=== PATIENT | female | born 1970 | race Caucasian/White ===

== ENCOUNTER → 2017-09-04 | Outpatient (CLI) | payer BC | END | disposition home or self-care (01) | LOC: RAH 13:01 | PROVIDERS: ATTEND Family Medicine | DX: N63.10 Unspecified lump in the right breast, unspecified quadrant (principal); N63.20 Unspecified lump in the left breast, unspecified quadrant; R92.8 Other abnormal and inconclusive findings on diagnostic imaging of breast | CPT/HCPCS: 76641; 77066 ==

== ENCOUNTER → 2018-10-14 | Outpatient (CLI) | payer BC | END | disposition home or self-care (01) | LOC: RAH 15:51 | PROVIDERS: ATTEND Family Medicine | DX: Z12.31 Encounter for screening mammogram for malignant neoplasm of breast (principal) | CPT/HCPCS: 77067 ==

== ENCOUNTER → 2020-11-29 | Outpatient (CLI) | payer BC | END | disposition home or self-care (01) | LOC: RAH 09:32 | PROVIDERS: ATTEND Family Medicine | DX: Z12.31 Encounter for screening mammogram for malignant neoplasm of breast (principal) | CPT/HCPCS: 77067 ==

== ENCOUNTER → 2021-11-30 | Outpatient (CLI) | payer BC | END | disposition home or self-care (01) | LOC: RAH 15:18 | PROVIDERS: ATTEND Family Medicine | DX: Z12.31 Encounter for screening mammogram for malignant neoplasm of breast (principal) | CPT/HCPCS: 77067 ==

== ENCOUNTER → 2023-01-10 | Outpatient (CLI) | payer BC | END | disposition home or self-care (01) | LOC: RAH 09:25 | PROVIDERS: ATTEND Family Medicine | DX: Z12.31 Encounter for screening mammogram for malignant neoplasm of breast (principal) | CPT/HCPCS: 77067 ==

== ENCOUNTER 2023-08-22 17:38 | Emergency (ER) | payer BC ==
[~2023-08-22] VITALS: Ht 170.2 cm; Wt 82.1 kg
[2023-08-22 18:36] LABS: BASOPHILS # (AUTO) 0.02 K/uL (0.00-0.20); BASOPHILS % (AUTO) 0.2 % (0.0-5.0); EOSINOPHILS # (AUTO) 0.04 K/uL (0.00-0.70); EOSINOPHILS % (AUTO) 0.5 % (0.0-8.0); HEMATOCRIT 42.8 % (36-48); IMMATURE GRANULOCYTE ABSOLUTE 0.02 K/uL (0-1); LYMPHOCYTES # (AUTO) 0.6 K/uL (1.0-4.8); LYMPHOCYTES % (AUTO) 6.8 % (21.0-51.0); MEAN CORPUSCULAR HEMOGLOBIN 33.3 pg (27.0-33.0); MEAN CORPUSCULAR HGB CONC 34.3 g/dL (32.0-36.0); MEAN CORPUSCULAR VOLUME 97.1 fL (79-99); MONOCYTES # (AUTO) 0.5 K/uL (0.1-1.0); MONOCYTES % (AUTO) 5.6 % (3.0-13.0); NEUTROPHILS # (AUTO) 7.5 K/uL (1.8-7.7); NEUTROPHILS % (AUTO) 86.7 % (40.0-77.0); PLATELET COUNT (AUTO) 139 K/uL (130-400); RED BLOOD CELL COUNT(AUTO) 4.41 MIL/uL (4.00-5.50); RED CELL DISTRIBUTION WIDTH 12.7 % (11.0-15.5); WHITE BLOOD COUNT (AUTO) 8.7 K/uL (4.8-10.8)
[2023-08-22] MEDS ORDERED: IOHEXOL-350 75 ML VIAL IV ONE (18:39)
[2023-08-22 18:43] LABS: CREATININE 0.8 mg/dL (0.5-1.0); POTASSIUM 3.4 mmol/L (3.5-5.1)
[2023-08-22] MEDS: 0.9%NACL 1000ML 1,000 ML IV ONE (18:47)
[2023-08-22] MEDS: ZOSYN 3.375GM +NS 50ML IVPB SCH (18:47)
[2023-08-22] MEDS: ONDANSETRON 4MG INJ IVP ONE (18:47)
[2023-08-22 18:48] VITALS: TEMP 100.6
[2023-08-22 18:48] LABS: ALBUMIN 3.3 g/dL (3.5-5.0); BILIRUBIN,TOTAL 0.8 mg/dL (0.2-1.0); TOTAL PROTEIN, SERUM 7.2 g/dL (6.0-8.3)
[2023-08-22] MEDS: MORPHINE 2 MG SYG IVP ONE (18:48)
[2023-08-22] MEDS: ACETAMINOPHEN 500 MG TABLET PO ONE (18:48)
[2023-08-22 19:13] LABS: WBC MORPHOLOGY CONSISTENT W/DIFF
[2023-08-22] MEDS ORDERED: CEPH500T PO (21:11)
[2023-08-22 21:19] VITALS: BP 117/70; PULSE 108; RESP 18; O2SAT 98
== END 2023-08-22 22:55 | disposition home or self-care (01) ==
LOC: EDH 17:38
DX: K61.1 Rectal abscess (principal); I10 Essential (primary) hypertension; Z79.899 Other long term (current) drug therapy
CPT/HCPCS: 99284; 74177; 96365; 96375; 96366; 80053; 85025; 87040 ×2; 83605; 36415; J2270; J7030; J2405; J2543; Q9967

== ENCOUNTER 2023-08-23 08:33 | Observation (INO) | payer BC ==
[~2023-08-23] VITALS: Ht 170.2 cm; Wt 82.1 kg
[~2023-08-23 08:33] MED LIST: CEPH500T PO
[2023-08-23] MEDS: LACTATED RINGERS 1000ML 1,000 ML IV ONE (08:59)
[2023-08-23] MEDS: LEVOFLOXACIN 500 MG/D5W 100 ML 100 ML IV ONE (08:59)
[2023-08-23 09:11] LABS: BASOPHILS # (AUTO) 0.02 K/uL (0.00-0.20); BASOPHILS % (AUTO) 0.2 % (0.0-5.0); EOSINOPHILS # (AUTO) 0.13 K/uL (0.00-0.70); EOSINOPHILS % (AUTO) 1.3 % (0.0-8.0); HEMATOCRIT 43.2 % (36-48); IMMATURE GRANULOCYTE ABSOLUTE 0.06 K/uL (0-1); LYMPHOCYTES # (AUTO) 0.8 K/uL (1.0-4.8); LYMPHOCYTES % (AUTO) 8.2 % (21.0-51.0); MEAN CORPUSCULAR HGB CONC 33.3 g/dL (32.0-36.0); MEAN CORPUSCULAR VOLUME 98.9 fL (79-99); MONOCYTES # (AUTO) 0.8 K/uL (0.1-1.0); MONOCYTES % (AUTO) 7.5 % (3.0-13.0); NEUTROPHILS # (AUTO) 8.4 K/uL (1.8-7.7); NEUTROPHILS % (AUTO) 82.2 % (40.0-77.0); PLATELET COUNT (AUTO) 152 K/uL (130-400); RED BLOOD CELL COUNT(AUTO) 4.37 MIL/uL (4.00-5.50); RED CELL DISTRIBUTION WIDTH 12.8 % (11.0-15.5); WHITE BLOOD COUNT (AUTO) 10.2 K/uL (4.8-10.8)
[2023-08-23] MEDS: LACTATED RINGERS 1000ML 1,848 ML IV ONE (09:21)
[2023-08-23 09:25] LABS: APPEARANCE,URINE CLEAR (CLEAR); BILIRUBIN,URINE NEGATIVE (NEGATIVE); COLOR,URINE LIGHT-YELLOW (YELLOW); GLUCOSE, URINE (UA) NEGATIVE (NEGATIVE); KETONES,URINE 5 mg/dL (NEGATIVE); LEUKOCYTE ESTERASE ,URINE NEGATIVE Leu/uL (NEGATIVE); NITRATE,URINE NEGATIVE (NEGATIVE); OCCULT BLOOD,URINE SMALL (NEGATIVE); PH,URINE 6.5 (5.0-8.0); PROTEIN,URINE NEGATIVE (NEGATIVE); UROBILINOGEN,URINE 0.2 mg/dL (0.2-1.0)
[2023-08-23 09:40] LABS: ADD UA MICROSCOPIC YES
[2023-08-23 09:55] LABS: POTASSIUM 3.4 mmol/L (3.5-5.1)
[2023-08-23 09:59] LABS: ALBUMIN 3.3 g/dL (3.5-5.0); TOTAL PROTEIN, SERUM 7.4 g/dL (6.0-8.3)
[2023-08-23 10:07] LABS: BACTERIA,URINE RARE /HPF (None Seen); MUCUS,URINE RARE LPF (None Seen); SQUAMOUS EPITHELIAL CELL,UR RARE /HPF (0-2)
[2023-08-23] MEDS: METRONIDAZOLE 500MG/100ML BAG IV SCH (10:33)
[2023-08-23] MEDS ORDERED: ACETAMINOPHEN 325 MG TAB PO PRN ×2 (12:30)
[2023-08-23] MEDS ORDERED: GUAIFENESIN-DM 200/20 MG 10 ML PO PRN (12:30)
[2023-08-23] MEDS ORDERED: ONDANSETRON 4MG INJ IV PRN (12:30)
[2023-08-23] MEDS ORDERED: DIPHENHYDRAMINE HCL 25 MG CAPSULE PO PRN (12:30)
[2023-08-23] MEDS ORDERED: ZOLPIDEM TARTRATE 5 MG TAB PO PRN (12:30)
[2023-08-23] MEDS ORDERED: DiphenhydrAMINE HCL 50 MG/ML VIAL IV PRN (12:30)
[2023-08-23] MEDS ORDERED: LACTULOSE 20 GM/30 ML UDCUP PO PRN (12:30)
[2023-08-23] MEDS ORDERED: HYDRALAZINE 25MG TABLET PO PRN (12:30)
[2023-08-23] MEDS ORDERED: ALPRAZOLAM 0.5 MG TABLET PO PRN (12:30)
[2023-08-23] MEDS ORDERED: DOCUSATE SODIUM 100 MG CAP PO PRN (12:30)
[2023-08-23] MEDS ORDERED: GUAIFENESIN SUGAR-FREE 100 MG/5 ML UDCUP PO PRN (12:30)
[2023-08-23] MEDS ORDERED: POLYETHYLENE GLYCOL 3350 17 GM POWD.PACK PO PRN (12:30)
[2023-08-23] MEDS ORDERED: MAG/ALUM/SIMETH 30 ML UDCUP PO PRN (12:30)
[2023-08-23] MEDS ORDERED: NITROGLYCERIN 0.4 MG SL TAB SL PRN (12:30)
[2023-08-23] MEDS: DOXYCYCLINE 100MG+NS 250ML 250 ML IV SCH (13:01)
[2023-08-23] MEDS: 0.9%NACL 1000ML 1,000 ML IV SCH (13:01)
[2023-08-23] MEDS ORDERED: METRONIDAZOLE 500MG/100ML BAG 100 ML IVPB ONE (14:00)
[2023-08-23 14:26] VITALS: BP 119/76; PULSE 88; RESP 18
[2023-08-23] MEDS: ZOSYN 3.375GM +NS 50ML IV SCH (15:29)
[2023-08-23 16:00] VITALS: BP 101/69; PULSE 88; RESP 18
[2023-08-23] MEDS: INSULIN HUMULIN R 100 UNIT/ML 3ML SQ SCH (16:30)
[2023-08-23 19:00] VITALS: BP 115/71; PULSE 74; RESP 14
[2023-08-23 20:00] VITALS: O2SAT 96
[2023-08-23] MEDS: FAMOTIDINE 20MG TAB PO SCH (20:25)
[2023-08-23 23:00] VITALS: BP 120/75; PULSE 83; RESP 14
[2023-08-24] VITALS (24 sets, daily range): BP systolic 106–134; BP diastolic 58–85; PULSE 72–95; RESP 12–18; O2SAT 98
[2023-08-24 06:32] LABS: HEMATOCRIT 34.9 % (36-48); MEAN CORPUSCULAR HEMOGLOBIN 33.1 pg (27.0-33.0); MEAN CORPUSCULAR HGB CONC 33.5 g/dL (32.0-36.0); MEAN CORPUSCULAR VOLUME 98.6 fL (79-99); RED BLOOD CELL COUNT(AUTO) 3.54 MIL/uL (4.00-5.50); RED CELL DISTRIBUTION WIDTH 12.5 % (11.0-15.5); WHITE BLOOD COUNT (AUTO) 4.4 K/uL (4.8-10.8)
[2023-08-24 06:43] LABS: INR 0.95 (0.85-1.15); PROTHROMBIN TIME 11.3 SEC (9.6-11.6)
[2023-08-24 06:48] LABS: CREATININE 0.8 mg/dL (0.5-1.0); MAGNESIUM 1.6 mg/dL (1.80-2.40); PHOSPHORUS 3.3 mg/dL (2.5-4.9); POTASSIUM 3.1 mmol/L (3.5-5.1)
[2023-08-24] MEDS ORDERED: LIDOCAINE PF 100MG/5ML (2%) SYRINGE 5ML ONE (07:31)
[2023-08-24] MEDS ORDERED: FENTANYL CITRATE PF 50 MCG/1 ML 2ML VIAL ONE ×2 (07:32→08:01)
[2023-08-24] MEDS ORDERED: MIDAZOLAM HCL 1 MG/ML 2ML VIAL ONE (07:32)
[2023-08-24] MEDS ORDERED: PROPOFOL 10 MG/ML 20ML VIAL IV ONE (07:32)
[2023-08-24] MEDS ORDERED: DEXAMETHASONE SOD PHOSPHATE 4 MG/ML 1ML VIAL ONE (07:49)
[2023-08-24] MEDS ORDERED: ONDANSETRON 4MG INJ ONE (07:49)
[2023-08-24] MEDS: KETOROLAC 30MG VIAL (30MG/ML) ONE (08:32)
[2023-08-24] MEDS ORDERED: AMOX1TAB16 PO (15:08)
[2023-08-24] MEDS ORDERED: MAGNESIUM 2GM PREMIX 50ML 50 ML IV PRN (15:30)
[2023-08-24] MEDS ORDERED: POTASSIUM CHLORIDE 20MEQ/100ML 100 ML IV PRN (15:30)
[2023-08-24] MEDS ORDERED: POTASSIUM CHLORIDE 10% ELIXIR 20 MEQ/15 ML UDCUP PO PRN (15:30)
[2023-08-24] MEDS ORDERED: KCL 20 MEQ ERTAB PO PRN (15:30)
[2023-08-24] MEDS: KCL 20 MEQ ERTAB PO ONE (15:47)
[2023-08-24] MEDS ORDERED: ENOXAPARIN SODIUM 40 MG/0.4 ML SYRINGE SQ SCH (17:00)
== END 2023-08-24 16:10 | disposition home or self-care (01) ==
LOC: EDH 08:33 → EDHIP 12:02 → 3DH 13:32
PROVIDERS: ADMIT Internal Medicine Critical Care Medicine; ATTEND Internal Medicine Critical Care Medicine
DX: A41.9 Sepsis, unspecified organism (principal); K61.1 Rectal abscess; I95.9 Hypotension, unspecified; I10 Essential (primary) hypertension; K52.9 Noninfective gastroenteritis and colitis, unspecified; E66.3 Overweight; K21.9 Gastro-esophageal reflux disease without esophagitis; F17.210 Nicotine dependence, cigarettes, uncomplicated; Z68.28 Body mass index [BMI] 28.0-28.9, adult; Z79.899 Other long term (current) drug therapy
CPT/HCPCS: 96365; 96366 ×4; 96367; 99284; 84484; 80053; 85025; 86850; 86900; 86901; 87040 ×2; 87046; 82948; 83605; 87177; 81001; 36415 ×2; 93005; 46050; 96368; 83735; 84100; 80048; 85027; 85610; 87070; 87076; 87077 ×2; 87186 ×2; 87205; G0378 ×26; J1956; J2543 ×4; J3490 ×4; J3010 ×2; J2001; J2250; J2704; J2405; J1885; J1100; A6446; A4649; A4930 ×2

== ENCOUNTER → 2024-04-29 | Outpatient (CLI) | payer BC ==
[~2024-04-29] MED LIST changes: +AMOX1TAB16 PO; -CEPH500T PO
--- NOTE | 2024-04-29 12:20 | HMCIMG ---
SCREENING MAMMOGRAM WITH TOMOSYNTHESIS REASON: Annual exam. COMPARISON: 01/10/2023 TECHNIQUE: CC and MLO views of the bilateral breasts were performed. Tomosynthesis was performed in both projections.CAD was performed as well. FINDINGS: Parenchymal density:Parenchymal density: The breasts are heterogeneously dense, which may obscure small masses. There are no focal mass lesions. There are no pathologic appearing calcifications. There is no evidence of architectural distortion or skin thickening. IMPRESSION: Normal screening mammogram with tomosynthesis. The patient was entered into a reminder system with a target due date for their next mammogram. BI-RADS CATEGORY 1: NEGATIVE Recommend monthly self breast exam as well as annual clinical examination. A negative x-ray should not delay biopsy if a dominant or clinically suspicious mass is present, since 8-10% of cancers are not identified by mammography. Dense breasts particularly, may obscure an underlying neoplasm. Some of these may be detected clinically and therefore, clinical examination is an essential part of breast evaluation.
== END | disposition home or self-care (01) ==
LOC: RAH 10:36
PROVIDERS: ATTEND Family Medicine
DX: Z12.31 Encounter for screening mammogram for malignant neoplasm of breast (principal); R92.333 Mammographic heterogeneous density, bilateral breasts
CPT/HCPCS: 77063; 77067